=== PATIENT | male | born 1950 | race Caucasian/White ===

== ENCOUNTER 2022-04-20 07:56 | Outpatient (REF) | payer MEDICARE, SELFPAY ==
[2022-04-20 10:49] LABS: Cholesterol 149 mg/dL; HDL Cholesterol 56 mg/dL; LDL Cholesterol Calculated 67 mg/dl; Triglycerides 133 mg/dL
[2022-04-20 13:45] LABS: Anion Gap 19 (12-20); Blood Urea Nitrogen 16 mg/dL (9-16); Calcium 9.3 mg/dL (8.4-10.2); Carbon Dioxide 24 mmol/L (22-29); Chloride 103 mmol/L (96-108); Estimated Glomerular Filt Rate > 60; Glucose Random 97 mg/dL (60-115); Potassium 4.9 mmol/L (3.3-5.1); Sodium 141 mmol/L (135-145)
== END 2022-04-20 07:57 | disposition home or self-care (01) ==
LOC: HO.10HDL 07:56
PROVIDERS: Visit Provider Internal Medicine Cardiovascular Disease
DX: I21.4 Non-ST elevation (NSTEMI) myocardial infarction (principal); E78.5 Hyperlipidemia, unspecified; I25.10 Atherosclerotic heart disease of native coronary artery without angina pectoris; I50.9 Heart failure, unspecified
CPT/HCPCS: 36415; 80048; 80061

== ENCOUNTER 2023-04-03 10:10 | Outpatient (REF) | payer MEDICARE, SELFPAY ==
[2023-04-03 11:25] LABS: Anion Gap 12 (12-20); Blood Urea Nitrogen 14 mg/dL (9-16); Calcium 9.5 mg/dL (8.4-10.2); Carbon Dioxide 25 mmol/L (22-29); Chloride 106 mmol/L (96-108); Estimated Glomerular Filt Rate > 60; Glucose Random 108 mg/dL (60-115); Potassium 5.1 mmol/L (3.3-5.1); Sodium 138 mmol/L (135-145)
== END 2023-04-03 10:11 | disposition home or self-care (01) ==
LOC: HO.10HDL 10:10
PROVIDERS: Visit Provider Family Medicine
DX: I11.0 Hypertensive heart disease with heart failure (principal); I50.9 Heart failure, unspecified; E78.5 Hyperlipidemia, unspecified
CPT/HCPCS: 36415; 80048